=== PATIENT | male | born 1980 | race Caucasian/White ===

== ENCOUNTER 2020-07-26 11:19 | Emergency (ER) | payer BC | END 2020-07-26 11:48 | disposition home or self-care (01) | LOC: JVIRT 11:19 | DX: Z03.818 Encounter for observation for suspected exposure to other biological agents ruled out (principal) | CPT/HCPCS: C9803; Q3014-GT; U0003 ==

== ENCOUNTER 2020-09-01 13:20 | Emergency (ER) | payer BC | END 2020-09-01 13:41 | disposition home or self-care (01) | LOC: JVIRT 13:20 | DX: Z20.828 Contact with and (suspected) exposure to other viral communicable diseases (principal) | CPT/HCPCS: C9803; G2012-GT; Q3014-GT; U0003 ==